=== PATIENT | female | born 1990 | race Caucasian/White ===

== ENCOUNTER → 2020-06-23 | Outpatient (REF) | payer OTHER ==
[2020-06-23 17:46] LABS: BASO # 0.1 10^3/uL (0.0-0.2); BASO % 0.8 % (0.0-1.0); EOS # 0.2 10^3/uL (0.0-0.5); EOS % 2.3 % (0.0-3.0); HEMATOCRIT 47.1 % (36.0-47.0); HEMOGLOBIN 15.8 g/dl (12.0-15.5); LYMPH # 3.2 10^3/uL (1.5-5.0); LYMPH % 48.8 % (24.0-44.0); MEAN CORPUSCULAR HEMOGLOBIN 29.8 pg (27.0-33.0); MEAN CORPUSCULAR HGB CONC 33.5 g/dl (32.0-36.5); MEAN CORPUSCULAR VOLUME 88.7 fl (80.0-96.0); MONO # 0.5 10^3/uL (0.0-0.8); NEUTROPHILS # 2.6 10^3/uL (1.5-8.5); NEUTROPHILS % 39.9 % (36.0-66.0); PLATELET COUNT, AUTOMATED 219 10^3/uL (150-450); RED BLOOD COUNT 5.31 10^6/uL (4.00-5.40); WHITE BLOOD COUNT 6.5 10^3/uL (4.0-10.0)
[2020-06-23 18:14] LABS: ALBUMIN 4.1 GM/DL (3.2-5.2); ALT/SGPT 25 U/L (12-78); BILIRUBIN,TOTAL 0.4 MG/DL (0.2-1.0); BLOOD UREA NITROGEN 16 MG/DL (7-18); CALCIUM LEVEL 9.8 MG/DL (8.5-10.1); CARBON DIOXIDE LEVEL 27 MEQ/L (21-32); CHLORIDE LEVEL 106 MEQ/L (98-107); CHOLESTEROL LEVEL 213 MG/DL (<200); CHOLESTEROL RISK RATIO 4.346 (<5); CREATININE FOR GFR 0.95 MG/DL (0.55-1.30); GLOMERULAR FILTRATION RATE > 60.0 (>60); GLUCOSE, FASTING 87 MG/DL (70-100); HDL CHOLESTEROL 49 MG/DL (>40); LDL CHOLESTEROL 132 MG/DL (<100); NON-HDL-C 164 MG/DL; POTASSIUM SERUM 4.6 MEQ/L (3.5-5.1); SODIUM LEVEL 138 MEQ/L (136-145); TOTAL PROTEIN 7.7 GM/DL (6.4-8.2); TRIGLYCERIDES LEVEL 161 MG/DL (<150)
== END ==
LOC: M LAB REF 16:47
PROVIDERS: ATTEND Physician Assistant
DX: R03.0 Elevated blood-pressure reading, without diagnosis of hypertension (principal)

== ENCOUNTER → 2020-09-30 | Outpatient (REF) | payer OTHER ==
[2020-09-30 16:57] LABS: BASO % 0.5 % (0.0-1.0); EOS # 0.1 10^3/uL (0.0-0.5); EOS % 1.4 % (0.0-3.0); HEMOGLOBIN 14.6 g/dl (12.0-15.5); LYMPH # 3.1 10^3/uL (1.5-5.0); LYMPH % 40.2 % (24.0-44.0); MEAN CORPUSCULAR HEMOGLOBIN 30.4 pg (27.0-33.0); MEAN CORPUSCULAR VOLUME 89.4 fl (80.0-96.0); MONO # 0.7 10^3/uL (0.0-0.8); MONO % 8.7 % (2.0-8.0); NEUTROPHILS # 3.8 10^3/uL (1.5-8.5); NEUTROPHILS % 48.8 % (36.0-66.0); PLATELET COUNT, AUTOMATED 203 10^3/uL (150-450); RED BLOOD COUNT 4.81 10^6/uL (4.00-5.40); WHITE BLOOD COUNT 7.7 10^3/uL (4.0-10.0)
== END ==
LOC: M LAB REF 16:12
PROVIDERS: ATTEND Physician Assistant
DX: D72.829 Elevated white blood cell count, unspecified (principal)

== ENCOUNTER 2021-05-24 06:17 | Day surgery (SDC) | payer OTHER ==
[~2021-05-24] VITALS: Ht 165.1 cm; Wt 93.8 kg
[~2021-05-24 06:17] MED LIST: ADV250INH INH; BUSP10TA PO; BUSP15TA90 PO; CLAR10CA3 PO; CLINDAMYCIN 600 MG in IV 1 EA IV ONE; DICL1GEL3 TOP; IBUP1TAB7 PO; LIDOCAINE 1% MDV 20ML VIAL SQ PRN; LR 1,000 ML IV ONE; PARO20TA3 PO; PROAAER10 INH; VELIPAK2 PO
[2021-05-24] MEDS ORDERED: BUPIVACAINE HCL 0.5% 30 ML VIAL As Ordered ONE (06:41)
[2021-05-24] MEDS ORDERED: LIDOCAINE 1% MDV 20ML VIAL As Ordered ONE (06:41)
[2021-05-24] MEDS ORDERED: dexameTHASONE 4 MG/ML 1ML VIAL (J1100 PER 1MG) As Ordered ONE ×2 (06:41→07:20)
[2021-05-24] MEDS ORDERED: CLIN150C17 PO (06:59)
[2021-05-24] MEDS ORDERED: propofoL 200 MG/20 ML VIAL As Ordered ONE (07:20)
[2021-05-24] MEDS ORDERED: MIDAZOLAM INJ 2MG/2ML VIAL (J2250 PER 1MG) As Ordered ONE (07:20)
[2021-05-24] MEDS ORDERED: fentaNYL 100 MCG/2 ML INJECTION (J3010) As Ordered ONE (07:20)
[2021-05-24] MEDS ORDERED: ONDANSETRON 4MG/2ML VIAL As Ordered ONE (07:20)
[2021-05-24] MEDS ORDERED: KETOROLAC 60MG 2ML VIAL As Ordered ONE (07:20)
[2021-05-24] MEDS ORDERED: LIDOCAINE 2% 100MG/5ML SDV (FOR ANES.) As Ordered ONE (07:20)
[2021-05-24] MEDS ORDERED: METOCLOPRAMIDE INJ 10MG/2ML VIAL (J2765 PER 1) As Ordered ONE (07:51)
[2021-05-24] MEDS ORDERED: LACRILUBE (AKWA TEARS) OPHTH OINT 3.5 GM As Ordered ONE (07:55)
[2021-05-24] MEDS ORDERED: OXYC1TAB23 PO (09:23)
[2021-05-24] MEDS ORDERED: ONDA-83 PO (09:23)
[2021-05-24] MEDS ORDERED: fentaNYL 100 MCG/2 ML INJECTION (J3010) IV PRN (09:40)
[2021-05-24] MEDS ORDERED: ONDANSETRON 4MG/2ML VIAL IV PRN (09:40)
[2021-05-24] MEDS ORDERED: LR 1,000 ML IV SCH (09:40)
[2021-05-24 10:15] VITALS: BP 137/68
--- NOTE | 2021-05-24 10:44 | RO ---
OPERATIVE NOTE DATE OF OPERATION: 05/24/2021 PREOPERATIVE DIAGNOSIS: Right foot bunion. POSTOPERATIVE DIAGNOSIS: Right foot bunion. PROCEDURE: Right foot Lapidus bunionectomy. SURGEON: Edin Urena DPM [employer] HELPER: None ANESTHESIA: General LMA with preop injection of 20 mL of a 1:1 mixture of 1% lidocaine plain, 1/2% Marcaine plain. ESTIMATED BLOOD LOSS: Minimal. MATERIALS: 3-0 and 4-0 Vicryl, 4-0 nylon and [employer] Lapiplasty system. COMPLICATIONS: None. CONDITION: Stable. INDICATIONS: Kamryn Robledo is a 30-year-old female who presents to [facility] with a painful bunion to her right foot. She presents today for surgical correction. The patient's side and site were identified and marked in the preoperative area. Consent was reviewed and obtained. All risks, complications and alternatives to the procedure were explained to the patient in detail and all questions were answered. DESCRIPTION OF PROCEDURE: The patient was brought to the operating room and placed on the operating room table in supine position. Monitored anesthesia care was delivered by the anesthesia team. A preop injection of 20 mL of a 1:1 mixture of 1% Lidocaine plain and 1/2% Marcaine plain were injected into the right foot. The right foot was prepped and draped in normal sterile fashion. A tourniquet was applied to the right thigh and inflated at 250 mmHg. A dorsal incision was made over the metatarsocuneiform and carried through with a #15 blade. Dissection was carried until the metatarsocuneiform joint was identified. A dorsal capsulotomy was performed and the soft tissue attachments surrounding the ligament were released. An osteotome was used to release the plantar ligaments. Next, attention was paid to the metatarsal head. A dorsal capsulotomy was performed, exposing the metatarsal head and then a lateral release was performed, releasing the adductor tendon and sesamoidal ligaments. A pin was inserted into the metatarsal base to allow frontal plane rotation. A stab incision was made over the second metatarsal and the metatarsal compressor was applied. Under C-arm visualization and with the joint seeker in place, the intermetatarsal angle was corrected. The joint cut guide was inserted and the base cartilage of the first metatarsal and distal cartilage of the medial cuneiform were removed with a sagittal saw. Surfaces were fenestrated with wire and the joint was compressed using the metatarsal compressor. The two locking plates were applied dorsal and medial with the four locking screws each. Good position was verified on C-arm Using a sagittal saw, the medial eminence of the first metatarsal head was resected and smoothed with a rasp. The site was irrigated with normal saline. Deep closure performed with 3-0 Vicryl and subcutaneous closure with 4-0 Vicryl. 1 mL of Decadron was injected. Sterile dressings were applied. The tourniquet was deflated. The patient was brought to the PACU with vital signs stable, neurovascular status intact. She will be nonweightbearing and will follow up in office in two days.
== END 2021-05-24 10:58 | disposition home or self-care (01) ==
LOC: M SDC 06:17
PROVIDERS: ATTEND Podiatrist Foot & Ankle Surgery
DX: M21.611 Bunion of right foot (principal); I10 Essential (primary) hypertension; M51.9 Unspecified thoracic, thoracolumbar and lumbosacral intervertebral disc disorder; L40.9 Psoriasis, unspecified; F41.9 Anxiety disorder, unspecified; R05.9 Cough, unspecified; J45.909 Unspecified asthma, uncomplicated; Z88.6 Allergy status to analgesic agent; Z88.0 Allergy status to penicillin; Z88.5 Allergy status to narcotic agent; Z88.8 Allergy status to other drugs, medicaments and biological substances; Z79.899 Other long term (current) drug therapy; Z79.51 Long term (current) use of inhaled steroids; Z79.2 Long term (current) use of antibiotics
CPT/HCPCS: 28297; 81025; 88300; 97116; C1713; J1100; J1885; J2250; J2405; J2765; J3010